=== PATIENT | male | born 1960 | race Caucasian/White ===

== ENCOUNTER 2020-03-26 06:44 | Emergency (ER) | payer MEDICARE ==
[~2020-03-26] VITALS: Ht 165.1 cm; Wt 65.8 kg
[~2020-03-26 06:44] MED LIST: CLARITIN10 MG PO; COMBIVENT1 ARO IH; DAYPRO600 M1 PO; FOLIC ACID1 MG PO; IBUPROFEN 30 M800 MG PO; KEFLEX500 MG PO; LAMICTAL200 MG PO; LIDEX0.05% T; LITHIUM PO; MEDROL DOSEPAK4 MG PO; MOTRIN800 MG PO; NORFLEX100 MG PO; PAXIL CR25 MG PO; PAXIL PO; PENICILLIN PO; PEPCID20 MG PO; PREDNICOT20 MG PO; PRILOSEC20 MG PO; TRAMADOL HCL50 MG PO; VICODIN 5/500 505 MG PO; ZITHROMAX Z PA250 MG PO; [UNRECOGNIZED DRUG - REMARK] PO
[2020-03-26 07:47] LABS: BILIRUBIN NEGATIVE (NEGATIVE); BLOOD TRACE-INTACT (NEGATIVE); CLARITY SL CLOUDY (CLEAR); COLOR YELLOW (YELLOW); GLUCOSE NEGATIVE (NEGATIVE); KETONE NEGATIVE (NEGATIVE); LEUKO ESTERASE NEGATIVE (NEGATIVE); NITRITE NEGATIVE (NEGATIVE); SPECIFIC GRAVITY 1.005 (1.005-1.030); UROBILINOGEN 0.2 E.U./dl (0.2-1.0)
[2020-03-26 07:52] LABS: BACTERIA TRACE
[2020-03-26] MEDS ORDERED: Motrin,Rufen800 MG PO (09:42)
== END 2020-03-26 09:51 | disposition home or self-care (01) ==
LOC: ED 06:44
PROVIDERS: Emergency Medicine
DX: S20.212A Contusion of left front wall of thorax, initial encounter (principal); Z79.899 Other long term (current) drug therapy; W01.0XXA Fall on same level from slipping, tripping and stumbling without subsequent striking against object, initial encounter; Y93.89 Activity, other specified; Y92.89 Other specified places as the place of occurrence of the external cause; Y99.8 Other external cause status